=== PATIENT | male | born 1945 | race Caucasian/White ===

== ENCOUNTER 2021-09-29 09:48 | Inpatient (IN) | payer MEDICARE, BC ==
[2021-09-29] MEDS ORDERED: Acetaminophen 325 MG TAB PO PRN (19:35)
[2021-09-29] MEDS: levETIRAcetam 500 MG TAB PO SCH (21:50)
[2021-09-29] MEDS: Atorvastatin Calcium 40 MG TAB PO SCH (21:51)
[2021-09-29] MEDS: Carvedilol 6.25 MG TAB PO SCH (21:51)
[2021-09-29] MEDS: Carbidopa/Levodopa 25-100 mg Tablet PO SCH (21:52)
[2021-09-29] MEDS: Donepezil HCl 5 MG TAB PO SCH (21:52)
[2021-09-29] MEDS: Amiodarone 200 MG TAB PO SCH (21:52)
[2021-09-29] MEDS: Apixaban 5 MG TAB PO SCH (21:52)
[2021-09-29 22:59] LABS: Hemoglobin A1c 5.9 % (4.0-6.0)
[2021-09-30 05:32] LABS: #Basophils 0.1 thou/uL (0.0-0.2); #Eosinphils 0.2 thou/uL (0.0-0.7); #Lymphocytes 1.5 thou/uL (1.20-3.40); #Neutrophils 4.4 thou/uL (1.40-6.50); %Basophils 0.8 % (0.0-1.0); %Eosinophils 2.5 % (0.0-10.0); %Lymphocytes 21.1 % (21.0-51.0); %Monocytes 14.3 % (0.0-10.0); %Neutrophils 61.3 % (42.0-75.0); Hemoglobin 14.3 g/dL (14.0-18.0); Mean Corpuscular HGB CONC 32.5 g/dL (32.0-36.0); Mean Corpuscular Hemoglobin 33.1 pg (27.0-31.0); Mean Platelet Volume 8.2 fL (7.4-10.4); Platelet Count 182 thou/uL (130-400); Red Blood Cell (RBC) Count 4.32 mill/uL (4.70-6.10); White Blood Cell (WBC) Count 7.2 thou/uL (4.8-10.8)
[2021-09-30 05:56] LABS: Anion Gap 11 mmol/L (10-20); BUN (Urea Nitrogen) 19 mg/dL (8.4-25.7); Calc. Creatinine Clearance 61 mL/min (70-130); Calcium 8.9 mg/dL (7.8-10.44); Carbon Dioxide 26 mmol/L (23-31); Cardiac Risk 2.7 (Less than 4.5); Chloride 106 mmol/L (98-107); Cholesterol 112 mg/dl (< 200 Desired); Glucose 77 mg/dL (83-110); HDL Cholesterol 42 mg/dL (>60 Neg Risk); LDL Cholesterol, Calculated 59 mg/dL; Potassium 4.1 mmol/L (3.5-5.1); Sodium 139 mmol/L (136-145); Triglycerides 53 mg/dL (Less than 150)
[2021-09-30] MEDS ORDERED: clonazePAM 1 MG TAB PO SCH (09:00)
[2021-09-30 09:58] LABS: Phosphorus 3.3 mg/dL (2.3-4.7)
[2021-09-30] MEDS: Aspirin 81 mg Enteric Coated Tablet PO SCH (10:42)
[2021-09-30] MEDS: levETIRAcetam 500 MG TAB PO SCH ×2 (10:42→22:13)
[2021-09-30] MEDS: Carbidopa/Levodopa 25-100 mg Tablet PO SCH ×3 (10:44→22:12)
[2021-09-30] MEDS: Carvedilol 6.25 MG TAB PO SCH ×2 (10:46→22:11)
[2021-09-30] MEDS: Citalopram 20 MG TAB PO SCH (10:46)
[2021-09-30] MEDS: Apixaban 5 MG TAB PO SCH ×2 (10:47→22:12)
[2021-09-30] MEDS: clonazePAM 1 MG TAB PO SCH (22:11)
[2021-09-30] MEDS: Amiodarone 200 MG TAB PO SCH (22:11)
[2021-09-30] MEDS: Donepezil HCl 5 MG TAB PO SCH (22:12)
[2021-09-30] MEDS: Atorvastatin Calcium 40 MG TAB PO SCH (22:12)
[2021-10-01 05:32] LABS: Anion Gap 11 mmol/L (10-20); BUN (Urea Nitrogen) 17 mg/dL (8.4-25.7); Calc. Creatinine Clearance 61 mL/min (70-130); Calcium 8.6 mg/dL (7.8-10.44); Carbon Dioxide 24 mmol/L (23-31); Chloride 105 mmol/L (98-107); Glucose 84 mg/dL (83-110); Potassium 3.9 mmol/L (3.5-5.1); Sodium 136 mmol/L (136-145)
[2021-10-01 05:39] LABS: Hemoglobin 14.4 g/dL (14.0-18.0); Lymphocytes 26 % (21-51); MDiff Complete? YES; Macrocytosis SLIGHT = 6-15 cells (100X) (0-5/hpf); Mean Corpuscular HGB CONC 32.6 g/dL (32.0-36.0); Mean Corpuscular Hemoglobin 33.2 pg (27.0-31.0); Mean Platelet Volume 8.3 fL (7.4-10.4); Monocytes 18 % (0-10); Neutrophil 56 % (42-75); Platelet Count 181 thou/uL (130-400); Platelet Morphology Comment Appears Adequate; RBC Distribution Width 12.9 % (11.5-14.5); Red Blood Cell (RBC) Count 4.34 mill/uL (4.70-6.10); White Blood Cell (WBC) Count 7.3 thou/uL (4.8-10.8)
[2021-10-01] MEDS: levETIRAcetam 500 MG TAB PO SCH ×2 (09:19→20:26)
[2021-10-01] MEDS: Aspirin 81 mg Enteric Coated Tablet PO SCH (09:19)
[2021-10-01] MEDS: Apixaban 5 MG TAB PO SCH (09:21)
[2021-10-01] MEDS: Citalopram 20 MG TAB PO SCH (09:21)
[2021-10-01] MEDS: Carvedilol 6.25 MG TAB PO SCH ×2 (09:21→20:27)
[2021-10-01] MEDS: Carbidopa/Levodopa 25-100 mg Tablet PO SCH ×3 (09:21→20:27)
[2021-10-01] MEDS: Atorvastatin Calcium 40 MG TAB PO SCH (20:26)
[2021-10-01] MEDS: Donepezil HCl 5 MG TAB PO SCH (20:27)
[2021-10-01] MEDS: clonazePAM 1 MG TAB PO SCH (20:27)
[2021-10-01] MEDS: Amiodarone 200 MG TAB PO SCH (20:28)
[2021-10-02 05:12] LABS: #Basophils 0.1 thou/uL (0.0-0.2); #Eosinphils 0.2 thou/uL (0.0-0.7); #Lymphocytes 1.5 thou/uL (1.20-3.40); #Monocytes 0.9 thou/uL (0.11-0.59); #Neutrophils 4.1 thou/uL (1.40-6.50); %Basophils 1.1 % (0.0-1.0); %Eosinophils 2.8 % (0.0-10.0); %Lymphocytes 22.5 % (21.0-51.0); %Monocytes 13.5 % (0.0-10.0); %Neutrophils 60.1 % (42.0-75.0); Hemoglobin 14.8 g/dL (14.0-18.0); Mean Corpuscular HGB CONC 32.7 g/dL (32.0-36.0); Mean Corpuscular Hemoglobin 33.4 pg (27.0-31.0); Platelet Count 129 thou/uL (130-400); RBC Distribution Width 13.1 % (11.5-14.5); Red Blood Cell (RBC) Count 4.43 mill/uL (4.70-6.10); White Blood Cell (WBC) Count 6.8 thou/uL (4.8-10.8)
[2021-10-02 05:38] LABS: Anion Gap 12 mmol/L (10-20); BUN (Urea Nitrogen) 18 mg/dL (8.4-25.7); Calc. Creatinine Clearance 59 mL/min (70-130); Calcium 8.6 mg/dL (7.8-10.44); Carbon Dioxide 21 mmol/L (23-31); Chloride 106 mmol/L (98-107); Glucose 82 mg/dL (83-110); Potassium 4.4 mmol/L (3.5-5.1); Sodium 135 mmol/L (136-145)
[2021-10-02 07:47] VITALS: TEMP 98.5
[2021-10-02] MEDS: Carbidopa/Levodopa 25-100 mg Tablet PO SCH ×2 (09:52→15:10)
[2021-10-02] MEDS: Carvedilol 6.25 MG TAB PO SCH (09:52)
[2021-10-02] MEDS: Citalopram 20 MG TAB PO SCH (09:52)
[2021-10-02] MEDS: Aspirin 81 mg Enteric Coated Tablet PO SCH (09:52)
[2021-10-02] MEDS: levETIRAcetam 500 MG TAB PO SCH (09:52)
[2021-10-02 11:34] VITALS: BP 154/84
[2021-10-02 13:39] VITALS: BMI 32.5
== END 2021-10-02 16:02 | disposition home health service (06) | DRG 65 ==
LOC: NEURO 09:48 → OBSVTOIN 10-01 16:50
PROVIDERS: ADMIT Student in an Organized Health Care Education/Training Program; ATTEND Emergency Medicine
DX: I63.511 Cerebral infarction due to unspecified occlusion or stenosis of right middle cerebral artery (principal); R29.701 NIHSS score 1; Z66 Do not resuscitate; Z20.822 Contact with and (suspected) exposure to COVID-19; I69.354 Hemiplegia and hemiparesis following cerebral infarction affecting left non-dominant side; I25.10 Atherosclerotic heart disease of native coronary artery without angina pectoris; G40.909 Epilepsy, unspecified, not intractable, without status epilepticus; I48.91 Unspecified atrial fibrillation; G20 Parkinson's disease; N18.9 Chronic kidney disease, unspecified; E78.5 Hyperlipidemia, unspecified; F02.80 Dementia in other diseases classified elsewhere, unspecified severity, without behavioral disturbance, psychotic disturbance, mood disturbance, and anxiety; Z95.1 Presence of aortocoronary bypass graft; Z88.0 Allergy status to penicillin; Z88.7 Allergy status to serum and vaccine; Z79.899 Other long term (current) drug therapy; Z79.82 Long term (current) use of aspirin; Z79.01 Long term (current) use of anticoagulants; Z95.5 Presence of coronary angioplasty implant and graft; Z98.890 Other specified postprocedural states
CPT/HCPCS: 36415; 70551; 80048; 80061; 83036; 83735; 84100; 84443; 85025; G0378; U0003; U0005

== ENCOUNTER 2022-07-29 08:58 | Outpatient (CLI) | payer MEDICARE | END 2022-07-29 08:59 | disposition home or self-care (01) | LOC: SCSCT 08:58 | PROVIDERS: ATTEND Otolaryngology | DX: J32.9 Chronic sinusitis, unspecified (principal) ==

== ENCOUNTER → 2024-03-14 | Outpatient (CLI) | payer MEDICARE | LOC: CT 12:01 | PROVIDERS: ATTEND Neurological Surgery | DX: I61.9 Nontraumatic intracerebral hemorrhage, unspecified (principal) | CPT/HCPCS: 70450 ==

== ENCOUNTER 2024-11-22 12:26 | Outpatient (CLI) | payer MEDICARE | END 2024-11-22 12:27 | disposition home or self-care (01) | LOC: CT 12:26 | PROVIDERS: ATTEND Nurse Practitioner Family | DX: G20.B1 Parkinson's disease with dyskinesia, without mention of fluctuations (principal); R51.9 Headache, unspecified; H53.9 Unspecified visual disturbance | CPT/HCPCS: 70450 ==